=== PATIENT | male | born 1965 | race Caucasian/White ===

== ENCOUNTER 2017-05-10 09:51 | Emergency (ER) | payer BC ==
--- NOTE | 2017-05-10 10:20 | UC ---
Cardiac HPI - HPI Summary HPI Summary: Left lateral lower rib pain for about 4 days. It hurts more to cough or sneeze. It feels better to sleep upright. No cough or fever. No recent illness. No trauma. No sob at rest. Non pleuritic. It does not hurt to breath. - History of Current Complaint Chief Complaint: UCAbdominalPain Stated Complaint: LEFT RIB PAIN Time Seen by Provider: 05/10/17 10:00 Hx Obtained From: Patient Onset/Duration: Gradual Onset, Lasting Days Timing: Constant Initial Severity: Moderate Current Severity: Moderate Chest Pain Location: Discrete at:, Left Lateral Character: Sharp/Stabbing Aggravating Factor(s): Position Alleviating Factor(s): Position Associated Signs & Symptoms: Positive: Negative - Allergy/Home Medications Allergies/Adverse Reactions: Allergies Allergy/AdvReac Type Severity Reaction Status Date / Time No Known Allergies Allergy Verified 05/10/17 10:09 Home Medications: Home Medications Ibuprofen TAB* [Advil TAB*] 400 mg PO Q6H PRN 05/10/17 [History Confirmed ] PMH/Surg Hx/FS Hx/Imm Hx Previously Healthy: Yes - denies lung disease. - Surgical History Surgical History: Yes Surgery Procedure, Year, and Place: tonsilectomy - Family History Known Family History: Positive: Other - no related rib disease. - Social History Occupation: Employed Full-time Alcohol Use: None Substance Use Type: None Smoking Status (MU): Never Smoked Tobacco Review of Systems Cardiovascular: Chest Pain All Other Systems Reviewed And Are Negative: Yes Physical Exam Triage Information Reviewed: Yes Appearance: Well-Appearing, No Pain Distress, Well-Nourished Vital Signs: Initial Vital Signs Temp 98.1 F 05/10/17 10:01 Pulse 51 05/10/17 10:01 Resp 14 05/10/17 10:01 BP 147/83 05/10/17 10:01 Pulse Ox 100 05/10/17 10:01 Vital Signs Reviewed: Yes Eyes: Positive: Conjunctiva Clear ENT: Positive: Normal ENT inspection. Negative: Pharynx normal, Pharyngeal erythema Neck: Positive: Supple, Nontender, No Lymphadenopathy Respiratory: Positive: Lungs clear, Normal breath sounds, No respiratory distress, No accessory muscle use. Negative: Respiratory distress, Decreased breath sounds, Accessory muscle use, Crackles, Rhonchi, Stridor, Wheezing Cardiovascular: Positive: No Murmur, Pulses Normal, Brisk Capillary Refill Abdomen Description: Positive: No Organomegaly, Soft. Negative: Distended, Guarding Musculoskeletal: Positive: Strength Intact, ROM Intact, No Edema, Other: - Pin point left lower lateral rib pain without bruising. No deformity or paradoxical movement. No rubs or crepitus in the area. Neurological: Positive: Alert, Muscle Tone Normal. Negative: Fatigued Skin: Negative: rashes - Assessment/Plan Course Of Treatment: Atraumatic localized rib pain. No signs of serious injury. NO signs of pneumonia. Thsi is not c/w cardiac disease. No signs of tumor or cancer. - Clinical Impression Provider Diagnoses: rib strain. chest wall pain. Discharge - Discharge Plan Condition: Good Disposition: HOME Prescriptions: traMADol TAB* [Ultram*] 50 mg PO Q12H PRN #20 tab MDD 2 PRN Reason: Pain Patient Education Materials: Rib Contusion (ED) Referrals: No Primary Care Phys,NOPCP [Primary Care Provider] -
--- NOTE | 2017-05-10 10:35 | RAD ---
INDICATION: Atraumatic left rib pain. COMPARISON: There are no prior studies available for comparison. TECHNIQUE: 3 views of the left ribs and dual-energy PA views of the chest were obtained. FINDINGS: No fracture or significant focal osseous abnormality is seen. The heart is within normal limits in size. The lungs are clear. There is no evidence for pneumothorax or pleural effusion. IMPRESSION: NO EVIDENCE FOR FRACTURE.
== END 2017-05-10 11:04 | disposition home or self-care (01) ==
LOC: UCCORT 09:51
DX: S29.012A Strain of muscle and tendon of back wall of thorax, initial encounter (principal); R07.89 Other chest pain
CPT/HCPCS: 99202; G0463

== ENCOUNTER 2017-06-17 09:17 | Emergency (ER) | payer BC ==
[2017-06-17 11:14] VITALS: BP 111/59
--- NOTE | 2017-06-17 11:58 | UC ---
FLU HPI - HPI Summary HPI Summary: Flu like illness since yesterday. Today he has a fever. he has muscular dystrophy. He takes no meds. Today he feels very lightheaded. He has not had anything to eat or drink today yet. NO cp, sob, abd pain, severe headache. - History of Current Complaint Chief Complaint: UCDizziness Stated Complaint: FLU SYMTOMS Time Seen by Provider: 06/17/17 10:59 Hx Obtained From: Patient, Family/Cruise Guide Onset/Duration: Gradual Onset, Lasting Days Severity Currently: Moderate Severity Initially: Severe Pain Intensity: 6 Associated Signs & Symptoms: Positive: Fever, Myalgia, Cough, Nasal Congestion. Negative: Vomiting, Diarrhea - Allergy/Home Medications Allergies/Adverse Reactions: Allergies Allergy/AdvReac Type Severity Reaction Status Date / Time No Known Allergies Allergy Verified 06/17/17 10:51 PMH/Surg Hx/FS Hx/Imm Hx Previously Healthy: No - muscular dystrophy. - Surgical History Surgical History: Yes Surgery Procedure, Year, and Place: tonsilectomy - Family History Known Family History: Positive: Other - no related rib disease. - Social History Lives: With Family Alcohol Use: None Substance Use Type: None Smoking Status (MU): Never Smoked Tobacco Review of Systems Constitutional: Fever Musculoskeletal: Myalgia Neurological: Weakness All Other Systems Reviewed And Are Negative: Yes Physical Exam Triage Information Reviewed: Yes Appearance: No Pain Distress, Well-Nourished - Non toxic but does appear tohave malaise and weakness. Vital Signs: Initial Vital Signs Temp 100.5 F 06/17/17 10:53 Pulse 54 06/17/17 10:53 Resp 20 06/17/17 10:53 BP 109/63 06/17/17 10:53 Pulse Ox 99 06/17/17 10:53 Vital Signs Reviewed: Yes ENT: Positive: Normal ENT inspection, Pharynx normal, Nasal congestion, TMs normal, Uvula midline. Negative: TM bulging, TM dull, TM red, Tonsillar swelling, Tonsillar exudate, Trismus, Sinus tenderness Neck: Positive: Supple, Nontender, No Lymphadenopathy. Negative: Nuchal Rigidity Respiratory: Positive: Lungs clear, Normal breath sounds, No respiratory distress, No accessory muscle use. Negative: Respiratory distress, Decreased breath sounds, Accessory muscle use, Crackles, Rhonchi, Stridor, Wheezing Cardiovascular: Positive: No Murmur, Pulses Normal, Brisk Capillary Refill Abdomen Description: Positive: No Organomegaly, Soft. Negative: Distended, Guarding Musculoskeletal: Positive: Strength Intact, ROM Intact. Negative: No Edema Neurological: Positive: Alert, Muscle Tone Normal, Fatigued. Negative: Lethargic, Unresponsive Psychological: Positive: Normal Response To Family, Age Appropriate Behavior Skin: Negative: rashes Flu Course/Dx - Course Course Of Treatment: He had near syncopal event upon arrival. He had a fever and had not been eating or drinking today. He denied any other symptoms that would be c/w AAA, cardiac ischemia or CVA. EKG showed sinus yeison and I believe this was most c/w vasovagal symptoms. he is now sitting up in bed and feels much better. He has an attentive and agrees to bring him to ED if he gets worse in any way. - Differential Dx/Diagnosis Provider Diagnoses: influenza Discharge - Discharge Plan Condition: Good Disposition: HOME Prescriptions: Oseltamivir CAP* [Tamiflu CAP*] 75 mg PO BID #10 cap Patient Education Materials: Influenza (ED) Referrals: Non Staff,Doctor [Primary Care Provider] - Additional Instructions: see your primary care doctor in 1-2 days to f/u. Go to ED for any worsening of symptoms.
[2017-06-17] MEDS ORDERED: Acetaminophen TAB* 325 MG PO ONE (12:12)
== END 2017-06-17 12:25 | disposition home or self-care (01) ==
LOC: UCCORT 09:17
DX: J10.1 Influenza due to other identified influenza virus with other respiratory manifestations (principal); G71.0 Muscular dystrophy
CPT/HCPCS: 87502; 93005; 99212; A9270-GY; G0463